=== PATIENT | male | born 1980 | race Caucasian/White ===

== ENCOUNTER 2024-06-07 10:15 | Outpatient (AMB) | payer BC, SELFPAY ==
--- NOTE | 2024-06-07 10:17 | MHC.PC.OV ---
Vital Signs 06/07/24 10:23 Height 6 ft 2 in Weight 169 lb BMI 21.7 BP 130/80 Blood Pressure Location Rt brachial Position Sitting Pulse 74 Pulse Source Pulse Oximeter Pulse Oximetry (%) 99 Oxygen Delivery Method Room Air Intake Visit Reasons: product development manager establish care Intake Note: Pt is here today as a New Paient to est care/Insomnia Allergies Penicillins [PENICILLINS] Allergy (Intermediate, Verified 06/07/24 10:37) HIVES Medication List - Last Reconciled 06/07/24 by Danica Gregory MD No Known Home Meds Tobacco use date assessed: 06/07/24 Dental Screening Dental Screen Date: 06/07/24 Did you have a dental visit in the last 12 months?: Yes Did you have a dental problem in the last 6 months where you did not have access to dental care?: No Was dental information given to patient?: Patient has dentist HPI product development manager establish care HPI Details The patient is a 43-year-old male new to practice, here to establish care with new PCP He has been having sleep difficulties. He reports long-standing problems initiating sleep, though once asleep, he maintains it well. This issue has persisted for years, exacerbated by a racing mind. Work schedules and bedtime routines involving late-night television might also be contributing factors. Previously, he was treated with Trazodone, finding 100 mg beneficial but 150 mg causing morning drowsiness. He expresses intermittent anxiety that could be impacting sleep quality. Past medical history includes anxiety, for which medication was previously tried 10 years ago without notable benefit, and resolved esophageal varices confirmed by upper endoscopy following history of alcohol abuse. Additionally, the patient has a history of cirrhosis that has reportedly improved based on previous liver function assessments. He remains abstinent from alcohol for eight years, with previous involvement in AA. He quit smoking seven years ago,now substituting with vaping. [facility] Medical History (Updated 06/09/24 @ 19:20 by Danica Gregory MD) Generalized anxiety disorder History of alcoholism History of esophageal varices History of vitamin D deficiency Umbilical hernia Hx of deep venous thrombosis Hx of cirrhosis Surgical History (Updated 06/07/24 @ 10:41 by Danica Gregory MD) History of endoscopy History of umbilical hernia repair History of facial fracture repair Family History (Updated 06/07/24 @ 10:22 by Magalys Michael CMA) Father Esophagus cancer Mother No problems noted. Brother No problems noted. Sister No problems noted. Social History Housing: House Alcohol intake: former Patient Tobacco Use Status: Former Tobacco user e-Cigarette/Vaping Use: Currently Using Substance Use Type: Marijuana service: No Current occupational status: employed Cognitive needs: No Hearing needs: No Vision needs: No Questionnaire PHQ-9 Over the last 2 weeks, how often have you been bothered by any of the following problems? 1. Little interest or pleasure in doing things: not at all 2. Feeling down, depressed, or hopeless: not at all 3. Trouble falling or staying asleep, or sleeping too much: more than half the days 4. Feeling tired or having little energy: not at all 5. Poor appetite or overeating: several days 6. Feeling bad about yourself - or that you are a failure or have let yourself or your family down: not at all 7. Trouble concentrating on things, such as reading the newspaper or watching television: not at all 8. Moving or speaking so slowly that other people could have noticed. Or the opposite - being so fidgety or restless that you have been moving around a lot more than usual: not at all 9. Thoughts that you would be better off or of hurting yourself in some way: not at all Total score: 3 Depression Screening Interpretation: Negative Depression Screening Done: Yes Source: Developed by Drs. Fahad Rodriguez, Porsha Washington, Jaden De La Cruz and colleagues, with an educational jacobo from [employer]. Thrive Questionnaire Date Thrive assessed: 06/07/24 I am a: Patient What is your living situation today?: I have a steady place to live Within the past 12 months, did the food you bought not last and you didn't have the money to get more?: Never true Within the past 12 months, did you worry whether your food would run out before you got money to buy more?: Never true Do you have trouble paying for medicines?: No Do you have trouble getting transportation to medical appointments?: No Do you have trouble paying your heating and electricity bill?: No Do you have trouble taking care of your child, family member or friend?: No Do you have trouble with day-to-day activities such as bathing, preparing meals, shopping, managing finances, etc.?: No Are you currently unemployed and looking for a job?: No Are you interested in more education?: No Please select the resources that you would like help with: None Currently or been in a relationship where the following occur: No concerns reported THRIVE Score: 0 AUDIT C Alcohol Use Questionnaire (AUDIT-C) 1. How often do you have a drink containing alcohol?: Never Total Score: 0 JASON-7 AMB Questionnaire JASON-7 Date JASON - 7 assessed: 06/07/24 Feeling nervous, anxious, or on edge: 1 = Several days Not being able to stop or control worryin = Several days Worrying too much about different things: 2 = More than half the days Trouble relaxin = Nearly every day Being so restless that it is hard to sit still: 1 = Several days Becoming easily annoyed or irritable: 2 = More than half the days Feeling afraid as if something awful might happen: 2 = More than half the days Total JASON-7 score (0-4 normal; 5-9 mild; 10-14 moderate; 15-21 severe): 12 Source: Developed by Drs. Fahad Rodriguez, Porsha aWshington, Jaden De La Cruz and colleagues, with an educational jacobo from [employer]. JASON-7 Assessment Billing JASON-7 Assessment Tool: JASON-7 Assessment 98734 Review of Systems Const Reports as per HPI, Denies body aches, Denies fatigue, Denies fever(s), Denies headache(s) and Denies weakness Eyes Denies change in vision ENT Denies dizziness, Denies headache(s), Denies nasal congestion and Denies nasal discharge Card Denies chest pain, Denies lightheadedness, Denies palpitations and Denies dyspnea Resp Denies chest congestion, Denies cough, Denies dyspnea and Denies wheezing GI Denies abdominal pain, Denies change in bowel habits and Denies heartburn Denies dysuria, Denies urinary frequency and Denies urinary urgency Musc Denies back pain, Denies arthralgias, Denies joint swelling and Denies stiffness Skin/Breast Denies lesions and Denies rash Neuro Denies dizziness, Denies headache(s) and Denies weakness Psych Reports as per HPI and Denies mood swings Endo Denies fatigue, Denies polydipsia, Denies polyuria and Denies palpitations Blade/Lymph Denies easy bruising Aller/Immun Denies seasonal rhinorrhea and Denies wheezing Physical exam (Primary Care) Vital Signs: Last Vital Signs Pulse 74 06/07/24 10:23 BP 130/80 06/07/24 10:23 Pulse Ox 99 06/07/24 10:23 Oxygen Delivery Method Room Air 06/07/24 10:23 BMI result Body Mass Index 21.7 Tobacco/Smoking Status: Tobacco use Status Tobacco use date assessed 06/07/24 06/07/24 10:24 Patient Tobacco Use Status Former Tobacco user (quit 7 06/07/24 10:48 years ago) e-Cigarette/Vaping Use Currently Using 06/07/24 10:24 PHQ-9: PHQ-9 Score PHQ-9: Total score 8 06/07/24 10:43 Depression Screening Interpretation: Negative Thrive Assessment: Date of Thrive Assessment Date Thrive assessed 06/07/24 06/07/24 10:24 Currently or been in a relationship where the following occur: No concerns reported Const General: no acute distress and alert Orientation/consciousness: patient oriented x3 HENMT Head: Yes normocephalic Ears: external ears normal, TM's normal bilaterally and EAC's normal General nose exam: Normal external nose present and No nasal discharge present Face and sinus: Yes face symmetric Mouth: Normal oral and palatal mucosa present, lip normal, oropharynx normal and moist mucous membranes Eyes General: appearance normal, both eyes and all related structures Neck Neck: Yes full ROM, Yes no lymphadenopathy and Yes supple Thyroid: Thyroid normal Chest Chest palpation & inspection: normal inspection of the chest Resp Effort & Inspection: normal respiratory effort and able to speak in complete sentences Auscultation: clear to auscultation bilaterally Cardio Rate: regular rate Rhythm: regular rhythm Heart sounds: S1 normal heart sound present and S2 normal heart sound present GI Palpation (GI): Soft to palpation, nontender, no guarding and no masses Auscultation: normal bowel sounds General: Yes no CVA tenderness Male General Exam: No hernia Scrotum: no inguinal hernias Testes: no testicular mass Back/Spine/Pelvis Back: no CVA tenderness and No back tenderness Skin General skin exam: no rashes or lesions noted Neuro General: patient oriented x3, gait normal, moves all extremities, Normal light touch and pain sensation, no focal motor deficits and CN's II-XI intact bilaterally Cognition (Neuro): normal cognition Gait exam (Neuro): Normal gait present Motor exam (neuro): 5/5 motor strength present throughout Extrem General: Yes normal to inspection, Yes full ROM, Yes no joint enlargement, Yes no pedal edema and Yes normal gait Psych Appearance: grossly normal and well kempt Mental Status: mental status grossly normal Speech and movement: Normal speech and movement present Affect: normal affect Attitude: cooperative Thought process: Normal thought process present Thought content: Normal thought content present Office Procedures Flu Questionnaire Does the patient have a severe egg allergy?: No Does the patient have severe life threatening allergies?: No Does the patient have a fever or illness today?: No Has the patient ever had Guillain-Stewardson Syndrome?: No Has the patient ever had any past reaction to a flu shot?: No Immunizations Fluarix Triv [id number] (PF) 45 mcg (15 mcg x 3)/0.5 mL IM syringe Performing Provider: Danica Gregory MD Performing Location: [facility] [place], [place] [facility] Administered by: Magalys Michael CMA on 06/07/24 10:33 Dose Route Admin Location Dispensed Lot Number Expiration Date [facility] [employer] Teacher 0.5 mL IM Right Deltoid 0.5 mL [id number] 01/15/25 13691-382-20 [employer] VIS Given Date VIS Provided VIS Publication Date 06/07/24 Single Vaccine 21 Eligibility Eligibility Date Funding Source Not [facility] Eligible 06/07/24 Private Coding Level of Care Code New Pt Level 4 (48755) Diagnoses Generalized anxiety disorder F41.1 History of vitamin D deficiency Z86.39 Additional Codes JASON-7 Assessment Billing - JASON-7 Assessment Tool: JASON-7 Assessment 01427 ([id number]) Assessment & Plan Assessment & Plan (1) Generalized anxiety disorder: Code(s): F41.1 - Generalized anxiety disorder Category: Medical (2) History of vitamin D deficiency: Code(s): Z86.39 - Personal history of other endocrine, nutritional and metabolic disease Category: Medical Plan - Initiation of Buspirone 5 mg, three times daily, for management of anxiety; adjust dose based on patient tolerance. - Restart Trazodone, beginning at 50 mg at bedtime, for insomnia. - Schedule physical examination and fasting blood tests including liver panel, cholesterol, vitamin D, , and CBC to assess overall health and liver status. - Continue to monitor liver health due to history of cirrhosis and resolved esophageal varices. - Encourage lifestyle adjustments to improve sleep hygiene, including limiting late evening activities and reducing screen time before bed. Patient was informed and verbally consented to the use of an ambient scribe for clinic note documentation during this visit. Orders: Orders Influenza [id number] Immunization 06/07/24 Z23 - Encounter for immunization Medications: New buspirone 5 mg PO TID 90 tabs 1RF trazodone 50 mg PO BEDTIME PRN 30 tabs 0RF sleep Patient Instructions: -
[2024-06-07 10:23] VITALS: BP 130/80; PULSE 74; O2SAT 99; BMI 21.7
== END 2024-06-07 13:14 | disposition home or self-care (01) ==
PROVIDERS: PCP Internal Medicine; Visit Provider Internal Medicine
DX: F41.1 Generalized anxiety disorder (principal); Z86.39 Personal history of other endocrine, nutritional and metabolic disease

== ENCOUNTER → 2024-06-07 10:15 | Outpatient (BNVA) | payer OTHER, SELFPAY | PROVIDERS: PCP Internal Medicine; Visit Provider Internal Medicine | DX: F41.1 Generalized anxiety disorder (principal); Z86.39 Personal history of other endocrine, nutritional and metabolic disease; Z23 Encounter for immunization | CPT/HCPCS: 90471; 90656; 96127 ==

== ENCOUNTER 2024-07-18 13:26 | Outpatient (AMB) | payer BC, SELFPAY ==
[2024-07-18 13:37] VITALS: BP 130/80; PULSE 82; O2SAT 98; BMI 22.3
--- NOTE | 2024-07-18 13:37 | A.OFFPC_ITS ---
Vital Signs 07/18/24 13:37 Height 6 ft 2 in Weight 174 lb BMI 22.3 BP 130/80 Blood Pressure Location Rt brachial Position Sitting Pulse 82 Pulse Source Pulse Oximeter Pulse Oximetry (%) 98 Oxygen Delivery Method Room Air Intake Visit Reasons: 4 weeks follow up/PE Intake Note: Pt is here today for his PE and his 4 weeks f/u depression & anxiety Allergies Penicillins [PENICILLINS] Allergy (Intermediate, Verified 07/18/24 13:53) HIVES Medication List - Last Reconciled 07/18/24 by Danica Gregory MD buspirone 5 mg PO TID doxylamine succinate (Unisom (doxylamine)) 25 mg PO BEDTIME PRN Tobacco use date assessed: 07/18/24 Dental Screening Dental Screen Date: 06/07/24 HPI 4 weeks follow up/PE HPI Details 44-year-old male with past medical histo ry significant for generalized anxiety disorder, and insomnia, here today for follow-up in a physical exam. He has been started on buspirone 5 mg , takes 1 tablet 3 times a day , which he states has been helping control his anxiety attacks. Denies any side effects from the medication. He also has been taking Unisom as needed for occasional episodes of insomnia, which has been helping. He is up-to-date with his yearly flu shot, and Tdap. Has had COVID vaccines in the past but does not want to get a COVID booster anymore. [facility] Medical History (Updated 07/21/24 @ 22:54 by Danica Gregory MD) History of umbilical hernia Generalized anxiety disorder History of alcoholism History of esophageal varices History of vitamin D deficiency Hx of deep venous thrombosis Hx of cirrhosis Surgical History History of endoscopy History of umbilical hernia repair History of facial fracture repair Family History Father Esophagus cancer Mother No problems noted. Brother No problems noted. Sister No problems noted. Social History Housing: House Alcohol intake: former Patient Tobacco Use Status: Former Tobacco user e-Cigarette/Vaping Use: Currently Using Substance Use Type: Marijuana service: No Current occupational status: employed Cognitive needs: No Hearing needs: No Vision needs: No Questionnaire PHQ-9 Over the last 2 weeks, how often have you been bothered by any of the following problems? Depression Screening Interpretation: Negative Depression Screening Done: Yes Source: Developed by Drs. Fahad Rodriguez, Porsha Washington, Jaden De La Cruz and colleagues, with an educational jacobo from [employer]. Thrive Questionnaire Date Thrive assessed: 05/31/24 I am a: Patient What is your living situation today?: I have a steady place to live Within the past 12 months, did the food you bought not last and you didn't have the money to get more?: Never true Within the past 12 months, did you worry whether your food would run out before you got money to buy more?: Never true Do you have trouble paying for medicines?: No Do you have trouble getting transportation to medical appointments?: No Do you have trouble paying your heating and electricity bill?: No Do you have trouble taking care of your child, family member or friend?: No Do you have trouble with day-to-day activities such as bathing, preparing meals, shopping, managing finances, etc.?: No Are you currently unemployed and looking for a job?: No Are you interested in more education?: No Please select the resources that you would like help with: None Currently or been in a relationship where the following occur: No concerns reported THRIVE Score: 0 AUDIT C Alcohol Use Questionnaire (AUDIT-C) 1. How often do you have a drink containing alcohol?: Never (Former alcoholic, sober now for the last 8 years) Total Score: 0 JASON-7 AMB Questionnaire JASON-7 Date JASON - 7 assessed: 07/18/24 Feeling nervous, anxious, or on edge: 0 = Not at all Not being able to stop or control worryin = Not at all Worrying too much about different things: 1 = Several days Trouble relaxin = Not at all Being so restless that it is hard to sit still: 0 = Not at all Becoming easily annoyed or irritable: 0 = Not at all Feeling afraid as if something awful might happen: 0 = Not at all Total JASON-7 score (0-4 normal; 5-9 mild; 10-14 moderate; 15-21 severe): 1 Source: Developed by Drs. Fahad Rodriguez, Porsha Washington, Jaden De La Cruz and colleagues, with an educational jacobo from [employer]. JASON-7 Assessment Billing JASON-7 Assessment Tool: JASON-7 Assessment 11955 Review of Systems Const Denies body aches, Denies fatigue, Denies fever(s), Denies headache(s) and Denies weakness Eyes Denies change in vision ENT Denies dizziness, Denies headache(s), Denies nasal congestion and Denies nasal discharge Card Denies chest pain, Denies lightheadedness, Denies palpitations and Denies dyspnea Resp Denies chest congestion, Denies cough, Denies dyspnea and Denies wheezing GI Denies abdominal pain, Denies change in bowel habits and Denies heartburn Denies dysuria, Denies urinary frequency and Denies urinary urgency Musc Denies back pain, Denies arthralgias, Denies joint swelling and Denies stiffness Skin/Breast Denies lesions and Denies rash Neuro Denies dizziness, Denies headache(s) and Denies weakness Psych Reports as per HPI and Denies mood swings Endo Denies fatigue, Denies polydipsia, Denies polyuria and Denies palpitations Blade/Lymph Denies easy bruising Aller/Immun Denies seasonal rhinorrhea and Denies wheezing Physical exam (Primary Care) Vital Signs: Last Vital Signs Pulse 82 07/18/24 13:37 BP 130/80 07/18/24 13:37 Pulse Ox 98 07/18/24 13:37 Oxygen Delivery Method Room Air 07/18/24 13:37 BMI result Body Mass Index 22.3 Tobacco/Smoking Status: Tobacco use Status Tobacco use date assessed 07/18/24 07/18/24 13:40 Patient Tobacco Use Status Former Tobacco user 07/18/24 13:40 e-Cigarette/Vaping Use Currently Using 07/18/24 13:40 Depression Screening Interpretation: Negative Thrive Assessment: Date of Thrive Assessment Date Thrive assessed 05/31/24 07/18/24 13:40 Currently or been in a relationship where the following occur: No concerns reported Const General: no acute distress and alert Orientation/consciousness: patient oriented x3 HENMT Head: Yes normocephalic Ears: external ears normal, TM's normal bilaterally and EAC's normal General nose exam: Normal external nose present and No nasal discharge present Face and sinus: Yes face symmetric Mouth: Normal oral and palatal mucosa present, oropharynx normal and moist mucous membranes Eyes General: appearance normal, both eyes and all related structures Neck Neck: Yes full ROM, Yes no lymphadenopathy and Yes supple Thyroid: Thyroid normal Chest Chest palpation & inspection: normal inspection of the chest Resp Effort & Inspection: normal respiratory effort and able to speak in complete sentences Auscultation: clear to auscultation bilaterally Cardio Rate: regular rate Rhythm: regular rhythm Heart sounds: S1 normal heart sound present and S2 normal heart sound present GI Palpation (GI): Soft to palpation, nontender, no guarding and no masses Auscultation: normal bowel sounds General: Yes no CVA tenderness Male General Exam: No hernia Testes: no testicular mass Back/Spine/Pelvis Back: no CVA tenderness and No back tenderness Skin General skin exam: no rashes or lesions noted Neuro General: patient oriented x3, gait normal, moves all extremities, Normal light touch and pain sensation, no focal motor deficits and CN's II-XI intact bilaterally Cognition (Neuro): normal cognition Gait exam (Neuro): Normal gait present Motor exam (neuro): 5/5 motor strength present throughout Extrem General: Yes normal to inspection, Yes full ROM, Yes no joint enlargement, Yes no pedal edema and Yes normal gait Psych Appearance: grossly normal and well kempt Mental Status: mental status grossly normal Speech and movement: Normal speech and movement present Affect: normal affect Attitude: cooperative Thought process: Normal thought process present Thought content: Normal thought content present Coding Level of Care Code Est Pt Prev Care 40-64y(95743) Diagnoses Annual visit for general adult medical examination with abnormal findings Z00.01 Generalized anxiety disorder F41.1 History of vitamin D deficiency Z86.39 Additional Codes JASON-7 Assessment Billing - JASON-7 Assessment Tool: JASON-7 Assessment 33115 ([id number]) Assessment & Plan Assessment & Plan (1) Annual visit for general adult medical examination with abnormal findings: Code(s): Z00.01 - Encounter for general adult medical examination with abnormal findings Plan: Will check appropriate labs. Recommended dental visit every 6 months and regular eye exams, at least every 2 years. Instructed to do [id number] exam check for any mass. Up-to-date with his vaccines, but does not want to get a COVID booster. (2) Generalized anxiety disorder: Code(s): F41.1 - Generalized anxiety disorder Category: Medical Plan: Currently stable and controlled on buspirone 5 mg to take 1 tablet 3 times a day. (3) History of vitamin D deficiency: Code(s): Z86.39 - Personal history of other endocrine, nutritional and metabolic disease Category: Medical Plan: Ordered vitamin-D level to be checked Orders: Orders Lipid Panel 07/18/24 F41.1 - Generalized anxiety disorder, K70.30 - Alcoholic cirrhosis of liver without ascites, Z00.01 - Encounter for general adult medical examination with abnormal findings, Z86.39 - Personal history of other endocrine, nutritional and metabolic disease Complete Blood Count Auto Diff 07/18/24 F41.1 - Generalized anxiety disorder, K70.30 - Alcoholic cirrhosis of liver without ascites, Z00.01 - Encounter for general adult medical examination with abnormal findings, Z86.39 - Personal history of other endocrine, nutritional and metabolic disease Comprehensive [place]. Panel Fast 07/18/24 F41.1 - Generalized anxiety disorder, K70.30 - Alcoholic cirrhosis of liver without ascites, Z00.01 - Encounter for general adult medical examination with abnormal findings, Z86.39 - Personal history of other endocrine, nutritional and metabolic disease Vitamin D 25-OH Total 07/18/24 F41.1 - Generalized anxiety disorder, K70.30 - Alcoholic cirrhosis of liver without ascites, Z00.01 - Encounter for general adult medical examination with abnormal findings, Z86.39 - Personal history of other endocrine, nutritional and metabolic disease
== END 2024-07-18 14:11 | disposition home or self-care (01) ==
PROVIDERS: PCP Internal Medicine; Visit Provider Internal Medicine
DX: Z00.01 Encounter for general adult medical examination with abnormal findings (principal); F41.1 Generalized anxiety disorder; Z86.39 Personal history of other endocrine, nutritional and metabolic disease

== ENCOUNTER → 2024-07-18 13:26 | Outpatient (BNVA) | payer BC, SELFPAY | PROVIDERS: PCP Internal Medicine; Visit Provider Internal Medicine | DX: Z00.01 Encounter for general adult medical examination with abnormal findings (principal); F41.1 Generalized anxiety disorder; Z86.39 Personal history of other endocrine, nutritional and metabolic disease; Z79.899 Other long term (current) drug therapy | CPT/HCPCS: 96127 ==